=== PATIENT | female | born 1995 | race Caucasian/White ===

== ENCOUNTER → 2018-05-10 | Outpatient (CLI) | payer BC ==
[2018-05-13 16:24] LABS: VARICELLA ZOS VIR IGG VALUE 271.3 INDEX
== END | disposition home or self-care (01) ==
LOC: C.LABMFLN 09:53
PROVIDERS: ATTEND Physician Assistant
DX: Z02.0 Encounter for examination for admission to educational institution (principal)

== ENCOUNTER 2022-11-20 01:42 | Inpatient (IN) ==
[2022-11-20] MEDS ORDERED: LIDOCAINE 1% LOCAL 20 ML VIAL INFIL PRN (02:40)
[2022-11-20] MEDS ORDERED: OXYTOCIN 30 UNITS/500 ML BAG IV PRN ×3 (02:40→06:39)
[2022-11-20] MEDS ORDERED: LACTATED RINGER'S 1,000 ML IV PRN (02:40)
[2022-11-20] MEDS ORDERED: BUTORPHANOL TARTRATE 1 MG/ML VIAL IV ONE (03:13)
[2022-11-20 04:47] LABS: Hematocrit (blood only) 33.7 % (37.0-47.0); Mean Corpuscular Hemoglobin 27.9 pg (25.0-34.0); Mean Corpuscular Hgb Conc 32.6 g/dL (32.0-36.0); Mean Corpuscular Volume 85.5 fL (80.0-100.0); Platelet Count 162 K/uL (130-400); RDW Coefficient of Variation 13.1 % (11.5-14.5); RDW Standard Deviation 40.5 fL (36.4-46.3); Red Blood Count 3.94 M/uL (4.20-5.40)
[2022-11-20] MEDS ORDERED: HYDROCORTISONE ACETATE 25 MG SUPP PR PRN (06:39)
[2022-11-20] MEDS ORDERED: oxyCODONE/ACETAMINOPHEN 5mg/325mg TAB PO PRN (06:39)
[2022-11-20] MEDS ORDERED: ACETAMINOPHEN W/CODEINE #3 1 TAB PO PRN (06:39)
[2022-11-20] MEDS ORDERED: bisacodyL 10 MG SUPP PR PRN (06:39)
[2022-11-20] MEDS ORDERED: DIPHTHERIA/TETANUS/PERTUSSIS 0.5mL SYR/VIAL (Age 7+yrs) IM ONE (06:39)
[2022-11-20] MEDS ORDERED: BENZOCAINE 20% AER SPR 82.5 GM CAN EXT PRN (06:39)
[2022-11-20] MEDS ORDERED: ACETAMINOPHEN 325 MG TAB PO PRN (06:39)
--- NOTE | 2022-11-20 07:03 | Delivery Summary ---
DATE OF PROCEDURE: 11/20/2022 This is a notation of a spontaneous vaginal delivery. The patient was followed in our office for care and delivery. She had an uneventful prenata l course. She is a 2, para 2, blood type is O positive, group B strep negative. She was adm itted in spontaneous labor at about 4-5 cm dilated with bulging membranes. After laboring for a whil e, membranes were ruptured. Fluid was clear, slightly blood-tinged. She then had sporadic contractio ns. We augmented her contractions with IV Pitocin. She then went to full dilatation. She tried sev eral different positions in labor. I came in and checked her, she was fully dilated. With about thr ee pushes, she pushed out a live male via direct occiput anterior position over an intact [place] neum. was suctioned through the mouth and the nose. Body was delivered without difficulty. Cord was allowed to pulse for one full minute, then it was clamped, cut by the father. Cord blood wa s taken. Placenta was removed manually with IV Pitocin running. Inspection of the perineum revealed no lacerations. Estimated blood loss was 200 mL. Uterus contracted nicely. Apgars deferred to the nurses. Job ID: [id number]
[2022-11-20] MEDS: IBUPROFEN 600 MG TAB PO PRN ×5 (07:17→23:15)
[2022-11-20] MEDS: PRENATAL VITAMIN 1 TAB PO SCH (07:19)
[2022-11-20] MEDS: DOCUSATE SODIUM 100 MG CAP PO SCH ×2 (07:19→23:15)
[2022-11-21 07:24] LABS: Hematocrit (blood only) 31.2 % (37.0-47.0); Hemoglobin 10.2 g/dl (12.0-16.0); Mean Corpuscular Hemoglobin 28.4 pg (25.0-34.0); Mean Corpuscular Hgb Conc 32.7 g/dL (32.0-36.0); Mean Corpuscular Volume 86.9 fL (80.0-100.0); Mean Platelet Volume 11.9 fL (9.4-12.4); Platelet Count 164 K/uL (130-400); RDW Coefficient of Variation 13.1 % (11.5-14.5); RDW Standard Deviation 41.1 fL (36.4-46.3); Red Blood Count 3.59 M/uL (4.20-5.40); White Blood Count 10.71 K/ul (4.8-10.8)
[2022-11-21] MEDS: PRENATAL VITAMIN 1 TAB PO SCH (08:44)
[2022-11-21] MEDS: DOCUSATE SODIUM 100 MG CAP PO SCH (08:44)
[2022-11-21] MEDS: IBUPROFEN 600 MG TAB PO PRN (08:44)
--- NOTE | 2022-11-21 09:29 | Obstetrical Progress Note ---
Date of Service November 21, 2022 Assessment & Plan Admission and Anticipated Discharge Date Admission Date: November 20, 2022 Subjective abdomen soft and non tender ambulating well no calf tenderness vaginal bleeding scant hgb 10.2 Results & Data ([facility]) Vital Signs (Past 12 Hours) Vital Signs Temp Pulse Pulse Resp BP Pulse Ox O2 Del Method 11/21/22 07:30 36.6 C 102 H 18 122/82 97 Room Air 11/21/22 02:45 36.5 C 99 H 18 120/78 Room Air 11/20/22 23:07 36.6 C 102 H 18 125/82 Room Air
[2022-11-21] MEDS ORDERED: bisacodyL 5 MG TABEC PO SCH (20:00)
== END 2022-11-21 12:22 | disposition home or self-care (01) | DRG 807 ==
LOC: OPB 01:42 → 4S1 01:46 → 4E2 09:05